=== PATIENT | male | born 1995 | race Caucasian/White ===

== ENCOUNTER 2017-01-22 15:09 | Emergency (ER) | payer BC, OTHER ==
[2017-01-22 15:17] VITALS: RESP 18
[2017-01-22] MEDS ORDERED: SODIUM CHLORIDE 0.9% 1,000 ML IV STA (15:48)
[2017-01-22] MEDS ORDERED: METOCLOPRAMIDE 5 MG/ML 2 ML VIAL IVP STA (15:48)
[2017-01-22] MEDS ORDERED: diphenhydrAMINE 50 MG/ML 1 ML VIAL IVP STA (15:48)
--- NOTE | 2017-01-22 15:58 | ED ---
General Adult HPI - General Chief complaint: Headache Stated complaint: Nausea/Headache Time Seen by Provider: 01/22/17 15:41 Source: patient, RN notes reviewed Mode of arrival: ambulatory Limitations: no limitations - History of Present Illness Initial comments: The patient is a 21-year-old male who presents emergency room today with a chief complaint of a headache that sort 2 days ago. He does start middle of the day when he was playing cards. States that seemed to increase as the day went on by the end of the night he was having increased throbbing type headache. He currently rates it a 8/10. States it has been constant over the last 2 days. He does admit that his had symptoms of nausea vomiting associated with this. He does not that he's had some photosensitivity. Patient states never had a similar headache. Patient denies any other complaints. Patient denies any recent fever, chills, shortness of breath, chest pain, back pain, abdominal pain, numbness or tingling, dysuria or hematuria, constipation or diarrhea, or any other complaints. - Related Data Previous Rx's Medication Instructions Recorded Naproxen Sodium [Naproxen Sodium 500 mg PO BID #20 tab 01/22/17 ER] Allergies Allergy/AdvReac Type Severity Reaction Status Date / Time No Known Allergies Allergy Verified 01/22/17 16:12 Review of Systems ROS Statement: Those systems with pertinent positive or pertinent negative responses have been documented in the HPI. ROS Other: All systems not noted in ROS Statement are negative. Past Medical History Past Medical History: No Reported History Additional Past Medical History / Comment(s): ZYGOMATIC ARCH INJURY R/T CLOSED HEAD INJURY History of Any Multi-Drug Resistant Organisms: None Reported Past Surgical History: No Surgical Hx Reported Past Anesthesia/Blood Transfusion Reactions: No Reported Reaction Past Psychological History: No Psychological Hx Reported Smoking Status: Never smoker Past Alcohol Use History: None Reported Past Drug Use History: None Reported - Past Family History Mother Family Medical History: No Reported History General Exam - General Exam Comments Initial Comments: General: The patient is awake and alert, in no distress, and does not appear acutely ill. Eye: Pupils are equal, round and reactive to light, extra-ocular movements are intact. No nystagmus. There is normal conjunctiva bilaterally. No signs of icterus. Ears, nose, mouth and throat: There are moist mucous membranes and no oral lesions. Neck: The neck is supple, there is no tenderness or JVD. No meningismal signs. Negative Kernig's and Brudzinski's. Cardiovascular: There is a regular rate and rhythm. No murmur, rub or gallop is appreciated. Respiratory: Lungs are clear to auscultation, respirations are non-labored, breath sounds are equal. No wheezes, stridor, rales, or rhonchi. Gastrointestinal: Soft, non-distended, non-tender abdomen without masses or organomegaly noted. There is no rebound or guarding present. No CVA tenderness. Bowel sounds are unremarkable. Musculoskeletal: Normal ROM, no tenderness. Strength 5/5. Sensation intact. Pulses equal bilaterally 2+. Neurological: A&O x 3. CN II-XII intact, There are no obvious motor or sensory deficits. Coordination appears grossly intact. Speech is normal. Skin: Skin is warm and dry and no rashes or lesions are noted. Psychiatric: Cooperative, appropriate mood & affect, normal judgment. Limitations: no limitations Course Vital Signs 01/22/17 15:16 Temperature 97.9 F Pulse Rate 84 Respiratory 18 Rate Blood Pressure 140/76 O2 Sat by Pulse 98 Oximetry Medical Decision Making - Medical Decision Making Case discussed in detail with attending physician Dr. Jaimes. Patient's CT negative for any acute abnormalities. His labs been reviewed are unremarkable. Patient feeling better from medications given here in the emergency room. He does admit to headache was slow onset again 2 days ago. He admits to some photosensitivity with symptoms of nausea vomiting. Was discussed with the patient about possible migraine. Patient feeling better after meds will be discharged home advised to continue with naproxen for any rebound headaches. Advised to follow family doctor return here to the emergency room if any symptoms increase worsen or for any other concerns. - Lab Data Result diagrams: 01/22/17 16:16 01/22/17 16:16 Lab Results 01/22/17 01/22/17 Range/Units 16:16 16:16 WBC 7.0 (4.0-11.0) k/uL RBC 4.89 (4.30-5.90) m/uL Hgb 14.9 (13.0-17.5) gm/dL Hct 43.8 (39.0-53.0) % MCV 89.7 (80.0-100.0) fL MCH 30.5 (25.0-35.0) pg MCHC 34.0 (31.0-37.0) g/dL RDW 12.7 (11.5-15.5) % Plt Count 198 (150-450) k/uL Neutrophils % 46 % Lymphocytes % 45 % Monocytes % 5 % Eosinophils % 1 % Basophils % 1 % Neutrophils # 3.2 (1.3-7.7) k/uL Lymphocytes # 3.2 (1.0-4.8) k/uL Monocytes # 0.4 (0-1.0) k/uL Eosinophils # 0.1 (0-0.7) k/uL Basophils # 0.0 (0-0.2) k/uL Sodium 143 (137-145) mmol/L Potassium 3.9 (3.5-5.1) mmol/L Chloride 107 (98-107) mmol/L Carbon Dioxide 24 (22-30) mmol/L Anion Gap 12 mmol/L BUN 14 (9-20) mg/dL Creatinine 0.81 (0.66-1.25) mg/dL Est GFR (MDRD) Af Amer >60 (>60 ml/min/1.73 sqM) Est GFR (MDRD) Non-Af >60 (>60 ml/min/1.73 sqM) Glucose 90 (74-99) mg/dL Calcium 9.7 (8.4-10.2) mg/dL Total Bilirubin 1.1 (0.2-1.3) mg/dL AST 20 (17-59) U/L ALT 26 (21-72) U/L Alkaline Phosphatase 54 (38-126) U/L Total Protein 7.6 (6.3-8.2) g/dL Albumin 4.8 (3.5-5.0) g/dL Disposition Clinical Impression: Acute headache Disposition: HOME SELF-CARE Condition: Good Instructions: Acute Headache (ED) Additional Instructions: Please use medication as discussed. Please follow-up with family doctor in the next 2 days of symptoms have not improved. Please return to emergency room if the symptoms increase or worsen or for any other concerns. Prescriptions: Naproxen Sodium [Naproxen Sodium ER] 500 mg PO BID #20 tab Referrals: Jacek Szymanski DO [Primary Care Provider] - 1-2 days Time of Disposition: 17:25
--- NOTE | 2017-01-22 16:18 | CT ---
EXAMINATION TYPE: CT brain wo con DATE OF EXAM: 01/22/2017 COMPARISON: 11/19/2015 INDICATION: Headache with nausea and vomiting x 3 days. DLP: 1126.00 mGycm, Automated exposure control for dose reduction was used. CONTRAST: None CT of the brain is performed utilizing 3 mm thick sections through the posterior fossa and 3 mm thick sections through the remaining calvarium. Study is performed within 24 hours of arrival to the hosp [facility]. No abnormal hyperdensity is present to suggest an acute intracranial hemorrhage. No mass lesion is evident. No acute infarcts are evident. Ventricles and sulci are appropriate for the patient age. Paranasal sinuses and mastoid air cells within the [id number] are clear. IMPRESSIONS: 1. Normal CT Brain
[2017-01-22 16:22] LABS: Basophils % (A) 1 %; CH 30.4; Eosinophils # (A) 0.1 k/uL (0-0.7); Eosinophils % (A) 1 %; HCT 43.8 % (39.0-53.0); HDW 2.32; HGB 14.9 gm/dL (13.0-17.5); Luc # (Auto) 0.14; Luc % (Auto) 2; Lymphocytes # (A) 3.2 k/uL (1.0-4.8); Lymphocytes % (A) 45 %; MCH 30.5 pg (25.0-35.0); MCV 89.7 fL (80.0-100.0); Monocytes # (A) 0.4 k/uL (0-1.0); Monocytes % (A) 5 %; Neutrophils # (A) 3.2 k/uL (1.3-7.7); Neutrophils % (A) 46 %; RBC 4.89 m/uL (4.30-5.90); RDW 12.7 % (11.5-15.5); WBC (Perox) 6.87
[2017-01-22 16:30] LABS: ALT 26 U/L (21-72); AST 20 U/L (17-59); Alkaline Phosphatase 54 U/L (38-126); Anion Gap 12 mmol/L; Blood Urea Nitrogen 14 mg/dL (9-20); Calcium 9.7 mg/dL (8.4-10.2); Carbon Dioxide 24 mmol/L (22-30); Chloride 107 mmol/L (98-107); Glucose 90 mg/dL (74-99); Non-African American GFR(MDRD) >60 (>60 ml/min/1.73 sqM); Potassium 3.9 mmol/L (3.5-5.1); Sodium 143 mmol/L (137-145); Total Bilirubin 1.1 mg/dL (0.2-1.3); Total Protein 7.6 g/dL (6.3-8.2)
[2017-01-22] MEDS ORDERED: KETOROLAC 30 MG/ML 1 ML VIAL IVP STA (16:45)
[2017-01-22 18:08] VITALS: BP 124/70; PULSE 67; TEMP 97.8
== END 2017-01-22 18:22 | disposition home or self-care (01) ==
LOC: EC 15:09
DX: R51 Headache (principal); R11.2 Nausea with vomiting, unspecified; Z87.828 Personal history of other (healed) physical injury and trauma
CPT/HCPCS: 99284; 96374; 96375 ×2; 36415; 80053; 85025; 70450; J1200; J2765; J1885

== ENCOUNTER 2017-05-26 11:04 | Emergency (ER) | payer BC ==
[2017-05-26 11:09] VITALS: BP 140/71; RESP 20; TEMP 100.2
[2017-05-26] MEDS ORDERED: IBUPROFEN 600 MG TAB PO STA (11:16)
[2017-05-26 11:22] VITALS: PULSE 98
--- NOTE | 2017-05-26 11:47 | ED ---
General Adult HPI - General Chief complaint: Dental/Oral Stated complaint: dental pain Time Seen by Provider: 05/26/17 11:10 Source: patient, RN notes reviewed Mode of arrival: ambulatory Limitations: no limitations - History of Present Illness Initial comments: Patient's a 21-year-old male who presents emergency room today with a chief complaint of increased dental pain. He doesn't that he has pain to the left lower wisdom tooth. Patient does admit to some swelling in this area. He denies any drainage or discharge. States he had this once before but the area drained on its own. He states he is going to try to follow-up the dentist. He states currently on any antibiotic. States tried Tylenol for pain with little relief last night. States has not taken anything today. Patient denies any recent shortness of breath, chest pain, back pain, abdominal pain, nausea or vomiting, numbness or tingling, headaches or visual changes, or any other complaints. - Related Data Previous Rx's Medication Instructions Recorded Naproxen Sodium [Naproxen Sodium 500 mg PO BID #20 tab 01/22/17 ER] Ibuprofen [Motrin] 600 mg PO Q6HR PRN #30 day 05/26/17 Penicillin V Potassium [Pen Vee K] 500 mg PO QID #40 tablet 05/26/17 Allergies Allergy/AdvReac Type Severity Reaction Status Date / Time No Known Allergies Allergy Verified 05/26/17 11:09 Review of Systems ROS Statement: Those systems with pertinent positive or pertinent negative responses have been documented in the HPI. ROS Other: All systems not noted in ROS Statement are negative. Past Medical History Past Medical History: No Reported History Additional Past Medical History / Comment(s): ZYGOMATIC ARCH INJURY R/T CLOSED HEAD INJURY History of Any Multi-Drug Resistant Organisms: None Reported Past Surgical History: No Surgical Hx Reported Past Anesthesia/Blood Transfusion Reactions: No Reported Reaction Past Psychological History: No Psychological Hx Reported Smoking Status: Never smoker Past Alcohol Use History: None Reported Past Drug Use History: None Reported - Past Family History Mother Family Medical History: No Reported History General Exam - General Exam Comments Initial Comments: General: The patient is awake and alert, in no distress, and does not appear acutely ill. Eye: Pupils are equal, round and reactive to light, extra-ocular movements are intact. No nystagmus. There is normal conjunctiva bilaterally. No signs of icterus. Ears, nose, mouth and throat: There are moist mucous membranes and no oral lesions. Tender to palpation of the gumline of tooth #17. No sign of abscess. Uvula midline. Patient swallows without any difficulty. Neck: The neck is supple, there is no tenderness or JVD. Cardiovascular: There is a regular rate and rhythm. No murmur, rub or gallop is appreciated. Respiratory: Lungs are clear to auscultation, respirations are non-labored, breath sounds are equal. No wheezes, stridor, rales, or rhonchi. Musculoskeletal: Normal ROM, no tenderness. Strength 5/5. Sensation intact. Pulses equal bilaterally 2+. Neurological: A&O x 3. CN II-XII intact, There are no obvious motor or sensory deficits. Coordination appears grossly intact. Speech is normal. Skin: Skin is warm and dry and no rashes or lesions are noted. Psychiatric: Cooperative, appropriate mood & affect, normal judgment. Limitations: no limitations Course Vital Signs 05/26/17 05/26/17 11:07 11:21 Temperature 100.2 F H Pulse Rate 120 H 98 Respiratory 20 Rate Blood Pressure 140/71 O2 Sat by Pulse 96 Oximetry Medical Decision Making - Medical Decision Making Patient will be started on antibiotics of penicillin. Given ibuprofen here in emergency room. Repeat vitals are stable. Patient advised return symptoms increase worsen and follow-up dentist over the next 2-5 days. Disposition Clinical Impression: Pain, dental Disposition: HOME SELF-CARE Condition: Good Instructions: Dental Abscess (ED) Additional Instructions: Please use medication as discussed. Please follow-up with dentist over the next 2-5 days Please return to emergency room if the symptoms increase or worsen or for any other concerns. Please follow-up with dentist and use antibiotic and pain medication as discussed. [facility] [place] [address] [place] [address] [phone]) (existing clients only) For new clients: [phone] [facility] Pay $50 for x-rays and the rest discovered [phone] Prescriptions: Ibuprofen [Motrin] 600 mg PO Q6HR PRN #30 day PRN Reason: Pain Penicillin V Potassium [Pen Vee K] 500 mg PO QID #40 tablet Referrals: None,Stated [Primary Care Provider] - 1-2 days Time of Disposition: 11:46
== END 2017-05-26 11:57 | disposition home or self-care (01) ==
LOC: EC 11:04
DX: K08.89 Other specified disorders of teeth and supporting structures (principal); R22.0 Localized swelling, mass and lump, head
CPT/HCPCS: 99282